=== PATIENT | female | born 1950 | race American Indian/Alaskan Native ===

== ENCOUNTER → 2025-03-04 | Emergency (ER) | payer OTHER ==
[~2025-03-04] VITALS: Ht 172.7 cm; Wt 68.0 kg
[~2025-03-04] MED LIST: ADULT LOW DOSE81 M1; COZAAR25 MG; DICLOFENAC SODI75 MG PO; KETOROLAC TROMETHAMINE 60 MG VIAL IM ONE; ROSUVASTATIN CAL5 MG; TRIAMCINOLONE ACETONIDE 40 MG/ML VIAL IM ONE
== END | disposition home or self-care (01) ==
LOC: ER 05:41
DX: M77.8 Other enthesopathies, not elsewhere classified (principal); I10 Essential (primary) hypertension; M19.90 Unspecified osteoarthritis, unspecified site